=== PATIENT | female | born 1995 ===

== ENCOUNTER 2020-05-19 18:09 | Emergency (ER) | payer SELFPAY ==
--- NOTE | 2020-05-19 19:10 | NUR ---
PATIENT WAS CALLED. PATIENT WAS NOT PRESENT.
--- NOTE | 2020-05-19 19:25 | NUR ---
PATIENT WAS CALLED TO BE TRIAGED. PATIENT WAS NOT PRESENT.
--- NOTE | 2020-05-19 19:57 | NUR ---
PATIENT WAS NOT TRIAGED OR SEEN BY [facility].
== END 2020-05-19 19:58 | disposition left against medical advice (07) ==
LOC: ER 18:14
DX: Z75.3 Unavailability and inaccessibility of health-care facilities (principal)